=== PATIENT | male | born 1975 | race Caucasian/White ===

== ENCOUNTER 2018-01-12 16:27 | Outpatient (CLI) | payer OTHER ==
[2018-01-12 17:44] LABS: eGFR (African) > 60; eGFR (Non-African) > 60
== END 2018-01-12 16:33 ==
LOC: LAB 16:27
PROVIDERS: ATTEND Physician Assistant
DX: R20.0 Anesthesia of skin (principal); R63.4 Abnormal weight loss
CPT/HCPCS: 36415; 80053; 83036; 84439; 84443; 84481

== ENCOUNTER 2018-01-19 16:00 | Outpatient (CLI) | payer OTHER | END 2018-01-19 16:03 | LOC: LAB 16:00 | PROVIDERS: ATTEND Physician Assistant | DX: R20.0 Anesthesia of skin (principal) | CPT/HCPCS: 36415; 82607; 82746 ==